=== PATIENT | male | born 1945 | race Caucasian/White ===

== ENCOUNTER 2018-09-12 09:46 | Day surgery (SDC) | payer OTHER ==
[~2018-09-12] VITALS: Ht 182.9 cm; Wt 85.0 kg
[2018-09-12 10:23] VITALS: BP 120/78
[2018-09-12] MEDS ORDERED: Simvastatin PO (10:37)
[2018-09-12] MEDS ORDERED: Digoxin PO (10:37)
[2018-09-12] MEDS ORDERED: Furosemide PO (10:37)
[2018-09-12] MEDS ORDERED: bupropion (10:37)
[2018-09-12] MEDS ORDERED: Coumadin PO (10:37)
[2018-09-12 10:54] LABS: ANION GAP 6 mmol/L (5-15); CALCIUM 9.7 mg/dL (8.5-10.1); CHLORIDE 106 mmol/L (98-107); CREATININE 1.27 mg/dL (0.7-1.3)
[2018-09-12 10:57] LABS: INTERNATIONAL NORMALIZED RATIO 2.03 (0.93-1.1); PROTHROMBIN TIME 20.9 Seconds (9.6-11.5)
[2018-09-12] MEDS ORDERED: PROPOFOL 10 MG/ML, 50ML ONE (11:59)
== END 2018-09-12 13:15 | disposition home or self-care (01) ==
LOC: CACL 09:46
PROVIDERS: ATTEND Internal Medicine Cardiovascular Disease
DX: I48.91 Unspecified atrial fibrillation (principal); E78.5 Hyperlipidemia, unspecified
CPT/HCPCS: 36415; 80048; 80162; 85610; 92960; J2704

== ENCOUNTER → 2018-11-07 | Outpatient (CLI) | payer OTHER ==
[~2018-11-07] MED LIST: Coumadin PO; Digoxin PO; Furosemide PO; REGADENOSON 0.4 MG/5 ML SYRINGE ONE; Simvastatin PO; bupropion
== END | disposition home or self-care (01) ==
LOC: RAD 11:21
PROVIDERS: ATTEND Internal Medicine Cardiovascular Disease
DX: Z01.810 Encounter for preprocedural cardiovascular examination (principal); R94.31 Abnormal electrocardiogram [ECG] [EKG]; I48.91 Unspecified atrial fibrillation; I34.0 Nonrheumatic mitral (valve) insufficiency
CPT/HCPCS: 78452; 93017; A9502; C9898; J2785

== ENCOUNTER 2019-02-22 09:00 | Inpatient (IN) | payer OTHER ==
[~2019-02-22] VITALS: Ht 180.3 cm; Wt 86.0 kg
[~2019-02-22 09:00] MED LIST changes: -REGADENOSON 0.4 MG/5 ML SYRINGE ONE; -bupropion; +bupropion PO
[2019-02-22] MEDS ORDERED: BISACODYL 5 MG EC TABLET PO PRN (11:00)
[2019-02-22] MEDS ORDERED: ZOLPIDEM 5MG TABLET PO PRN (11:00)
[2019-02-22] MEDS ORDERED: BISACODYL 10 MG SUPP PR PRN (11:00)
[2019-02-22] MEDS ORDERED: ONDANSETRON 2MG/ML, 2ML IVPush PRN (11:00)
[2019-02-22] MEDS ORDERED: PLEASE ENTER HEIGHT AND WEIGHT MC SCH (11:00)
[2019-02-22 11:07] LABS: ANION GAP 8 mmol/L (5-15); CHLORIDE 109 mmol/L (98-107); CHOLESTEROL, TOTAL 152 mg/dL (140-239); CREATININE 1.27 mg/dL (0.7-1.3); TRIGLYCERIDES 114 mg/dL (50-200); VLDL CHOLESTEROL 23 mg/dL (0-25)
[2019-02-22 11:11] LABS: CHOL/HDL RATIO 3.5; FREE T4 (FREE THYROXINE) 0.94 ng/dL (0.76-1.46); HDL CHOL % 29 % (26-37); HDL CHOLESTEROL (DIRECT) 44 mg/dL (40-60); LDL CHOLESTEROL,CALCULATED 85 mg/dL (54-169); LDL/HDL RATIO 1.9 (0.5-3.0); TROPONIN I < 0.015 ng/mL (0.000-0.045)
[2019-02-22] MEDS ORDERED: AMIODARONE 200 MG TABLET ONE (11:17)
[2019-02-22 11:22] VITALS: BP 141/82
[2019-02-22 11:25] LABS: INTERNATIONAL NORMALIZED RATIO 1.29 (0.93-1.1); PROTHROMBIN TIME 13.4 Seconds (9.6-11.5)
[2019-02-22] MEDS: AMIODARONE 200 MG TABLET PO SCH ×2 (11:27→14:51)
[2019-02-22 14:31] VITALS: BP 115/66
[2019-02-22 16:55] LABS: TROPONIN I < 0.015 ng/mL (0.000-0.045)
[2019-02-22] MEDS ORDERED: WARFARIN 7.5 MG TABLET PO-COUM ONE (18:00)
[2019-02-22 20:02] VITALS: BP 105/67
[2019-02-22] MEDS ORDERED: AMIODARONE 200 MG TABLET PO SCH (21:00)
[2019-02-22] MEDS: ACETAMINOPHEN 325 MG TABLET PO PRN (22:15)
[2019-02-22 22:51] LABS: TROPONIN I < 0.015 ng/mL (0.000-0.045)
[2019-02-23 03:04] VITALS: BP 137/76
[2019-02-23] MEDS: ACETAMINOPHEN 325 MG TABLET PO PRN ×2 (03:18→23:00)
[2019-02-23 05:18] LABS: INTERNATIONAL NORMALIZED RATIO 1.29 (0.93-1.1); PROTHROMBIN TIME 13.4 Seconds (9.6-11.5)
[2019-02-23 07:40] VITALS: BP 135/86
[2019-02-23] MEDS ORDERED: DIGOXIN 0.25 MG TABLET PO SCH (09:00)
[2019-02-23] MEDS ORDERED: DILTIAZEM 300 MG CAP.ER.24H PO SCH (09:00)
[2019-02-23] MEDS: POTASSIUM CHLORIDE 10 MEQ TABLET.ER PO SCH (09:03)
[2019-02-23] MEDS: AMIODARONE 200 MG TABLET PO SCH ×2 (09:03→21:25)
[2019-02-23] MEDS: FUROSEMIDE 40 MG TABLET PO SCH (09:03)
[2019-02-23 13:36] VITALS: BP 120/79
[2019-02-23] MEDS ORDERED: WARFARIN 7.5 MG TABLET PO-COUM SCH (18:00)
[2019-02-23] MEDS ORDERED: DILT300C42 PO (18:37)
[2019-02-23] MEDS ORDERED: WARF4TAB65 PO (18:37)
[2019-02-23 19:05] VITALS: BP 148/80
[2019-02-23 21:20] VITALS: BP 150/90
[2019-02-24 02:16] VITALS: BP 134/82
[2019-02-24 05:55] LABS: INTERNATIONAL NORMALIZED RATIO 1.42 (0.93-1.1); PROTHROMBIN TIME 14.7 Seconds (9.6-11.5)
[2019-02-24 07:18] VITALS: BP 153/78
[2019-02-24] MEDS: FUROSEMIDE 40 MG TABLET PO SCH (08:35)
[2019-02-24] MEDS: AMIODARONE 200 MG TABLET PO SCH ×2 (08:35→20:40)
[2019-02-24] MEDS: POTASSIUM CHLORIDE 10 MEQ TABLET.ER PO SCH (08:35)
[2019-02-24] MEDS ORDERED: SODIUM CHLORIDE 0.9% 1,000 ML IV SCH (09:00)
[2019-02-24 09:26] LABS: BASOPHILS # (AUTO) 0.04 x10^3/uL (0-0.1); BASOPHILS % (AUTO) 1 % (0-1); EOSINOPHILS # (AUTO) 0.08 x10^3/uL (0-0.4); EOSINOPHILS % (AUTO) 1 % (1-7); LYMPHOCYTES # (AUTO) 1.46 x10^3/uL (1-3.4); LYMPHOCYTES % (AUTO) 24 % (22-44); MD NO; MEAN CORPUSCULAR HEMOGLOBIN 25.8 pg (27.5-34.5); MEAN CORPUSCULAR HGB CONC 31.9 g/dL (33.2-36.2); MEAN CORPUSCULAR VOLUME 80.8 fL (81-97); MEAN PLATELET VOLUME 6.4 fL (7.4-10.4); MONOCYTES # (AUTO) 0.26 x10^3/uL (0.2-0.8); MONOCYTES % (AUTO) 4 % (2-9); NEUTROPHILS # (AUTO) 4.17 x10^3/uL (1.8-6.8); NEUTROPHILS % (AUTO) 69 % (42-75); PLATELET COUNT 286 x10^3/uL (130-400); RED BLOOD COUNT 5.81 x10^6/uL (4.38-5.82); RED CELL DISTRIBUTION WIDTH 16.1 % (9.4-14.8)
[2019-02-24 09:38] LABS: ALANINE AMINOTRANSFERASE 18 U/L (12-78); ALBUMIN 4.2 g/dL (3.4-5.0); ANION GAP 2 mmol/L (5-15); CALCIUM 9.2 mg/dL (8.5-10.1); CHLORIDE 109 mmol/L (98-107); CHOLESTEROL, TOTAL 178 mg/dL (140-239); CREATININE 1.21 mg/dL (0.7-1.3)
[2019-02-24 09:41] LABS: ALKALINE PHOSPHATASE 118 U/L (45-117); BILIRUBIN,TOTAL 0.7 mg/dL (0.2-1.0); CHOL/HDL RATIO 3.8; HDL CHOL % 26 % (26-37); HDL CHOLESTEROL (DIRECT) 47 mg/dL (40-60); LDL CHOLESTEROL,CALCULATED 95 mg/dL (54-169); TRIGLYCERIDES 179 mg/dL (50-200); VLDL CHOLESTEROL 36 mg/dL (0-25)
[2019-02-24] MEDS ORDERED: PROPOFOL 10 MG/ML, 20ML ONE (11:18)
[2019-02-24 12:42] VITALS: BP 162/98
[2019-02-24] MEDS ORDERED: WARFARIN 7.5 MG TABLET PO-COUM SCH (18:00)
[2019-02-24 20:13] VITALS: BP 150/55
[2019-02-25 04:00] VITALS: BP 147/77
[2019-02-25 04:35] LABS: INTERNATIONAL NORMALIZED RATIO 1.58 (0.93-1.1); PROTHROMBIN TIME 16.3 Seconds (9.6-11.5)
[2019-02-25 08:22] VITALS: BP 156/73
[2019-02-25] MEDS: FUROSEMIDE 40 MG TABLET PO SCH (08:55)
[2019-02-25] MEDS: POTASSIUM CHLORIDE 10 MEQ TABLET.ER PO SCH (08:56)
[2019-02-25] MEDS: AMIODARONE 200 MG TABLET PO SCH (08:56)
[2019-02-25] MEDS ORDERED: AMIO200T42 PO (09:19)
[2019-02-25] MEDS ORDERED: WARFARIN 10 MG TABLET PO-COUM SCH (18:00)
== END 2019-02-25 11:40 | disposition home or self-care (01) | DRG 309 ==
LOC: 5SO 09:53 → DCLOUNGE 02-25 11:31
PROVIDERS: ADMIT Internal Medicine Cardiovascular Disease; ATTEND Internal Medicine Cardiovascular Disease
PROC: B246ZZ4 Ultrasonography of Right and Left Heart, Transesophageal (ICD-10-PCS; 2019-02-24)
PROC: 5A2204Z Restoration of Cardiac Rhythm, Single (ICD-10-PCS; principal; 2019-02-24 13:30)
DX: I48.91 Unspecified atrial fibrillation (principal); D68.69 Other thrombophilia; I45.10 Unspecified right bundle-branch block; E78.5 Hyperlipidemia, unspecified; I34.0 Nonrheumatic mitral (valve) insufficiency; Z96.652 Presence of left artificial knee joint; Z88.8 Allergy status to other drugs, medicaments and biological substances
CPT/HCPCS: 36415; 71046; 80048; 80053; 80061; 84439; 84443; 84484; 85014; 85018; 85025; 85610; 92960; 93005; 93312; 93321; 93325; G0378; J2704

== ENCOUNTER 2019-04-18 14:01 | Day surgery (SDC) | payer OTHER ==
[~2019-04-18] VITALS: Ht 180.3 cm; Wt 84.1 kg
[2019-04-18 14:35] VITALS: BP 157/97
== END 2019-04-18 16:10 | disposition home or self-care (01) ==
LOC: CACL 14:01
PROVIDERS: ATTEND Internal Medicine Cardiovascular Disease
DX: I48.92 Unspecified atrial flutter (principal); I34.0 Nonrheumatic mitral (valve) insufficiency; E78.5 Hyperlipidemia, unspecified; F17.210 Nicotine dependence, cigarettes, uncomplicated; E66.3 Overweight; Z68.25 Body mass index [BMI] 25.0-25.9, adult; Z79.1 Long term (current) use of non-steroidal anti-inflammatories (NSAID); Z79.01 Long term (current) use of anticoagulants; Z79.899 Other long term (current) drug therapy; Z88.8 Allergy status to other drugs, medicaments and biological substances; Z90.49 Acquired absence of other specified parts of digestive tract; Z96.651 Presence of right artificial knee joint
CPT/HCPCS: 36415; 80048; 85610; 92960; 93312; 93321; 93325

== ENCOUNTER → 2020-04-25 | Outpatient (CLI) | payer OTHER ==
[~2020-04-25] MED LIST changes: +AMIO200T42 PO; +BUPR300T94 PO; +DILT300C42 PO; +HYDR-3237 PO; +WARF4TAB65 PO
== END | disposition home or self-care (01) ==
LOC: CVU 09:07
PROVIDERS: ATTEND Internal Medicine Cardiovascular Disease
DX: I08.3 Combined rheumatic disorders of mitral, aortic and tricuspid valves (principal); I48.91 Unspecified atrial fibrillation
CPT/HCPCS: 93306; 93356

== ENCOUNTER → 2020-05-20 | Outpatient (CLI) | payer BC ==
[~2020-05-20] MED LIST changes: +APIX5TAB PO; +ATOR40TA78 PO; +DICL75TA3 PO; +ENOX60SY4 SC; +FURO40TA6 PO
== END | disposition home or self-care (01) ==
LOC: STAR 11:59
PROVIDERS: ATTEND Neurological Surgery
DX: Z01.818 Encounter for other preprocedural examination (principal); Z20.828 Contact with and (suspected) exposure to other viral communicable diseases; M48.061 Spinal stenosis, lumbar region without neurogenic claudication; M43.06 Spondylolysis, lumbar region; M54.17 Radiculopathy, lumbosacral region; R79.1 Abnormal coagulation profile; R94.31 Abnormal electrocardiogram [ECG] [EKG]
CPT/HCPCS: 36415; 87635; 93005